=== PATIENT | male | born 1985 | race African-American/Black ===

== ENCOUNTER 2016-12-16 03:25 | Emergency (ER) | payer OTHER ==
[~2016-12-16] VITALS: Ht 185.4 cm; Wt 117.9 kg
[~2016-12-16 03:25] MED LIST: NKM; TYLENOL EXTRA500 MG ORAL
[2016-12-16 03:35] VITALS: BP 136/73
--- NOTE | 2016-12-16 03:54 | Emergency Room Report ---
History of Present Illness General Chief Complaint: Head Injury Source: Patient Present Illness HPI Patient hit head on counter. Bleeding was noted by girlfriend and controlled. He went to work. No LOC. Denies pain in head. No dizziness, fever, change vision. Also c/o L knee pain. Seen here post basketball injury with dx of "effusion". Still gives him problems. box office agent. Played football. No other somatic complaints. Tetanus UTD. Allergies: Coded Allergies: No Known Allergies (Unverified , 09/07/15) Patient History Past Medical History: see triage record Social History Narrative security systems sales representative Reviewed Nursing Documentation: PMH: Agreed, PSxH: Agreed Nursing Documentation-PMH Past Medical History: No Stated History Review of Systems All Other Systems: negative except mentioned in HPI Physical Exam Vital Signs Date Time Temp Pulse Resp B/P (MAP) Pulse Ox O2 Delivery O2 Flow Rate FiO2 12/16/16 03:33 97.9 88 17 136/73 100 Room Air General Appearance: well appearing, no apparent distress Head: normocephalic, other - lac occiput R Eyes: bilateral eye normal inspection, bilateral eye PERRL, bilateral eye EOMI ENT: hearing grossly normal, normal voice, moist mucus membranes Neck: full range of motion, supple, no bony tend Respiratory: no respiratory distress, speaking full sentences Cardiovascular #1: normal peripheral pulses, regular rate, rhythm Cardiovascular #2: 2+ radial (R) Musculoskeletal: no calf tenderness, other - ligament laxity of L knee without drawer. Applies negative. Neurologic: alert, oriented x3, motor strength/tone normal, sensory intact, cerebellar normal, normal gait, speech normal Psychiatric: mood/affect normal Skin: laceration Procedures Laceration/Wound Repair Laceration/Wound Repair : Consent: Verbal Wound Location: head Wound's Depth, Shape: into muscle, linear, irregular Wound Length (cm): 3 Wound Explored: clean Betadine Prep?: Yes Anesthesia: Lidocaine w/ Epi Wound Debrided: none Wound Repaired With: sutures Suture Size/Type: 4:0, proline Layer Closure?: No Sterile Dressing Applied?: No - bacitracin applied Patient Tolerated: Well Complications: None Medical Decision Making Diagnostic Impression: Primary Impression: Laceration Additional Impressions: Acute head injury Qualified Codes: S09.90XA - Unspecified injury of head, initial encounter Chronic knee instability Qualified Codes: M23.52 - Chronic instability of knee, left knee ER Course Patient with head laceration. No KO. Needs sutures (slight late presentation, but still indicated.) No pain. Knee with instability of ligaments (more than R, but lax there also). Needs further eval with probable MRI and suggested PT. At this time, rubi would not help. Sutured. Cailin well. Patient stable for outpatient observation and treatment. Last Vital Signs Date Time Temp Pulse Resp B/P (MAP) Pulse Ox O2 Delivery O2 Flow Rate FiO2 12/16/16 04:30 78 17 151/82 100 Room Air 12/16/16 03:35 97.9 Status: improved Disposition: HOME, SELF-CARE Condition: Improved Scripts Bacitracin (Bacitracin) 28.4 Gm Oint...g. 1 APPLIC TOPIC BID, #10 GM Prov: Yadiel Gregorio M.D. 12/16/16 Yadiel Gregorio M.D. Dec 16, 2016 03:54
[2016-12-16] MEDS ORDERED: Bacitracin Oint UD TOPIC ONE (04:00)
[2016-12-16] MEDS ORDERED: Lidocaine 1% 10mg/ml/Epi 0.005mg/ml 30ml vial INJ ONE (04:00)
[2016-12-16] MEDS ORDERED: BACITRACIN15 GM TOPIC (04:22)
[2016-12-16 04:30] VITALS: BP 151/82
== END 2016-12-16 04:30 | disposition home or self-care (01) ==
LOC: EMR 03:52
DX: S09.90XA Unspecified injury of head, initial encounter (principal); S01.91XA Laceration without foreign body of unspecified part of head, initial encounter; M23.52 Chronic instability of knee, left knee; W22.8XXA Striking against or struck by other objects, initial encounter; Y93.9 Activity, unspecified; Y92.9 Unspecified place or not applicable
CPT/HCPCS: 12013; 99284; Z7502

== ENCOUNTER 2016-12-24 03:07 | Emergency (ER) | payer OTHER ==
[~2016-12-24] VITALS: Ht 185.4 cm; Wt 122.5 kg
[~2016-12-24 03:07] MED LIST changes: +BACITRACIN15 GM TOPIC
[2016-12-24 03:47] VITALS: BP 143/83
--- NOTE | 2016-12-24 04:02 | Emergency Room Report ---
History of Present Illness General Chief Complaint: Wound Recheck/Suture Removal Source: Patient Present Illness HPI 31-year-old male no significant past medical history presenting with suture removal. Patient states he hit his head, sustaining laceration to back of right head, had 2 sutures placed 8 days ago in our emergency room. No complaints at this time Allergies: Coded Allergies: No Known Allergies (Unverified , 09/07/15) Patient History Past Medical History: see triage record Past Surgical History: none Pertinent Family History: none Reviewed Nursing Documentation: PMH: Agreed, PSxH: Agreed Nursing Documentation-PMH Past Medical History: No Stated History Review of Systems All Other Systems: negative except mentioned in HPI Physical Exam Vital Signs Date Time Temp Pulse Resp B/P (MAP) Pulse Ox O2 Delivery O2 Flow Rate FiO2 12/24/16 03:41 97.9 72 16 143/83 96 Room Air Sp02 EP Interpretation: reviewed, normal General Appearance: normal inspection, well appearing, no apparent distress, alert, GCS 15, non-toxic Head: normocephalic - 2 sutures and the right scalp, no purulent drainage Eyes: bilateral eye normal inspection, bilateral eye PERRL, bilateral eye EOMI ENT: normal ENT inspection, normal pharynx, normal voice, moist mucus membranes Neck: normal inspection, full range of motion, supple Respiratory: normal inspection, lungs clear, normal breath sounds, no respiratory distress, no retraction, no wheezing, speaking full sentences, chest symmetrical Cardiovascular #1: normal inspection, regular rate, rhythm, no edema, normal capillary refill Cardiovascular #2: 2+ radial (R), 2+ radial (L) Gastrointestinal: normal inspection, non tender, soft, non-distended, no guarding Genitourinary: no CVA tenderness Musculoskeletal: normal inspection, back normal, normal range of motion, non- tender Neurologic: normal inspection, alert, oriented x3, responsive, motor strength/ tone normal, sensory intact, normal gait, speech normal Psychiatric: normal inspection, judgement/insight normal, memory normal Skin: normal inspection, normal color, no rash, warm/dry, well hydrated, normal turgor Procedures Additional Procedure Procedure Narrative Suture removal performed 2 sutures removed from right scalp No complications Medical Decision Making Diagnostic Impression: Primary Impression: Encounter for removal of sutures ER Course 31-year-old male here for suture removal no other complaints ER course: 2 sutures removed Disposition: Patient is to be discharged to home. Please note that this Emergency Department Report was dictated using [employer] inspector technology software, occasionally this can lead to erroneous entry secondary to interpretation by the dictation equipment Last Vital Signs Date Time Temp Pulse Resp B/P (MAP) Pulse Ox O2 Delivery O2 Flow Rate FiO2 12/24/16 03:47 97.9 72 16 143/83 96 Room Air Disposition: HOME, SELF-CARE Condition: Improved [facility]errals: [facility] (PCP) Gris Sheffield M.D. Dec 24, 2016 04:02
[2016-12-24 04:11] VITALS: BP 143/83
== END 2016-12-24 04:11 | disposition home or self-care (01) ==
LOC: EMR 03:51
DX: Z48.02 Encounter for removal of sutures (principal)
CPT/HCPCS: 99281

== ENCOUNTER 2018-02-04 03:01 | Emergency (ER) | payer OTHER ==
[~2018-02-04] VITALS: Ht 185.4 cm; Wt 126.1 kg
[2018-02-04 03:30] VITALS: BP 125/79
[2018-02-04] MEDS ORDERED: IBUPROFEN600 MG ORAL (03:48)
--- NOTE | 2018-02-04 03:48 | Emergency Room Report ---
History of Present Illness General Chief Complaint: Pain Source: Patient Present Illness HPI 32-year-old male with no past medical history. He presents with chief complaint of bilateral feet pain. His been on and off for the last 2 weeks. Worse in the morning. He said the pain is to the sole of his foot near the heel. No trauma. No swelling. No fever chills. Denies any other complaint. Worse with walking. Pain is 7 out of 10. Throbbing in nature. 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 Allergies: Coded Allergies: No Known Allergies (Unverified , 09/07/15) Patient History Past Medical History: see triage record, old chart reviewed Past Surgical History: none Pertinent Family History: none Social History: Denies: smoking Immunizations: other Reviewed Nursing Documentation: PMH: Agreed; PSxH: Agreed Nursing Documentation-PMH Past Medical History: No Stated History Review of Systems Eye: Denies: eye pain, blurred vision ENT: Denies: ear pain, nose congestion, throat swelling Respiratory: Denies: cough, shortness of breath Cardiovascular: Denies: chest pain, palpitations Gastrointestinal: Denies: abdominal pain, diarrhea, nausea, vomiting Musculoskeletal: Reports: joint pain, muscle pain; Denies: back pain Skin: Denies: rash Neurological: Denies: headache, numbness Endocrine: Denies: increased thirst, increased urine Hematologic/Lymphatic: Denies: easy bruising All Other Systems: negative except mentioned in HPI Physical Exam Vital Signs Date Time Temp Pulse Resp B/P (MAP) Pulse Ox O2 Delivery O2 Flow Rate FiO2 02/04/18 03:10 98.4 87 16 125/79 95 Room Air vitals normal Sp02 EP Interpretation: reviewed, normal General Appearance: well appearing, no apparent distress, alert Head: normocephalic, atraumatic Eyes: bilateral eye PERRL, bilateral eye EOMI ENT: hearing grossly normal, normal pharynx Neck: full range of motion, supple, no meningismus Respiratory: chest non-tender, lungs clear, normal breath sounds Cardiovascular #1: regular rate, rhythm, no murmur Gastrointestinal: normal bowel sounds, non tender, no mass, no organomegaly, no bruit, non-distended Musculoskeletal: back normal, gait/station normal, normal range of motion, other - Bilateral feet: Patient is flat-footed. He has tenderness on the sole near the heel area. No inflammation. No abscess. No redness. No warmth. Neurologic: alert, oriented x3 Psychiatric: mood/affect normal Skin: warm/dry Medical Decision Making Diagnostic Impression: Primary Impression: Plantar fasciitis, bilateral ER Course Patient presents with bilateral feet pain. No evidence of diabetes or neuropathy. This is more likely a plantar fasciitis but no evidence of infection a septic joint. We'll discharge home. We'll give referral to see a staffing analyst. Last Vital Signs Date Time Temp Pulse Resp B/P (MAP) Pulse Ox O2 Delivery O2 Flow Rate FiO2 02/04/18 03:10 98.4 87 16 125/79 95 Room Air Status: improved Disposition: HOME, SELF-CARE Condition: Stable Scripts Ibuprofen* (MOTRIN*) 600 Mg Tablet 600 MG ORAL THREE TIMES A DAY, #30 TAB 0 Refills Prov: Tano Ball MD 02/04/18 Referrals: [facility] (PCP) Additional Instructions: Elevate leg. Follow-up with your DrVinod for referral to see a staffing analyst. Return if symptom worsen. Tano Ball MD Feb 04, 2018 03:48
[2018-02-04 04:00] VITALS: BP_SYST 119; BP_SYST 121; BP_DIAS 63; BP_DIAS 65
== END 2018-02-04 04:00 | disposition home or self-care (01) ==
LOC: EMR 03:30
DX: M72.2 Plantar fascial fibromatosis (principal); M21.42 Flat foot [pes planus] (acquired), left foot; M21.41 Flat foot [pes planus] (acquired), right foot
CPT/HCPCS: 99282

== ENCOUNTER 2018-02-23 03:22 | Emergency (ER) | payer OTHER ==
[~2018-02-23] VITALS: Ht 185.4 cm; Wt 122.5 kg
[~2018-02-23 03:22] MED LIST changes: +IBUPROFEN600 MG ORAL
[2018-02-23 03:28] VITALS: BP 122/66
[2018-02-23 03:46] VITALS: BP 122/66
--- NOTE | 2018-02-23 03:48 | Emergency Room Report ---
History of Present Illness General Chief Complaint: Wound Recheck/Suture Removal Source: Patient Present Illness HPI Patient 32-year-old male who presented for wound check. Patient had a suture repair of his left ear at [facility]. This occurred approximately 2 weeks ago. Patient denies any pain or swelling.The patient denies any discharge or increased pain. Allergies: Coded Allergies: No Known Allergies (Unverified , 09/07/15) Patient History Past Medical History: see triage record Reviewed Nursing Documentation: PMH: Agreed; PSxH: Agreed Nursing Documentation-PMH Past Medical History: No Stated History Review of Systems All Other Systems: negative except mentioned in HPI Physical Exam Vital Signs Date Time Temp Pulse Resp B/P (MAP) Pulse Ox O2 Delivery O2 Flow Rate FiO2 02/23/18 03:28 98.1 74 16 122/66 97 Room Air General Appearance: well appearing, no apparent distress Head: normocephalic, atraumatic ENT: hearing grossly normal, normal voice Neck: full range of motion, supple Respiratory: no respiratory distress, speaking full sentences Musculoskeletal: no calf tenderness Neurologic: normal inspection, alert, oriented x3, responsive, field crop farming supervisor III-XII nml as tested, normal gait Psychiatric: mood/affect normal Skin: no rash, other - healed laceration no infection Medical Decision Making Diagnostic Impression: Primary Impression: Encounter for removal of sutures ER Course Patient presented for wound check. Differential diagnosis included healed wound , cellulitis, wound dehiscence among others. The sutures were removed by me. The patient is advised to follow up with primary care doctor in for wound recheck as needed. Patient is advised to return if any worsening condition or if any changes in status that are concerning. Last Vital Signs Date Time Temp Pulse Resp B/P (MAP) Pulse Ox O2 Delivery O2 Flow Rate FiO2 02/23/18 03:28 98.1 74 16 122/66 97 Room Air Status: improved Disposition: HOME, SELF-CARE Condition: Stable Patient Instructions: Suture Removal, Care After Jonathan Valdes MD Feb 23, 2018 03:48
== END 2018-02-23 04:00 | disposition home or self-care (01) ==
LOC: EMR 03:50
DX: S01.312D Laceration without foreign body of left ear, subsequent encounter (principal); X58.XXXD Exposure to other specified factors, subsequent encounter; Z48.02 Encounter for removal of sutures
CPT/HCPCS: 99282

== ENCOUNTER 2019-03-21 03:43 | Emergency (ER) | payer OTHER ==
[~2019-03-21] VITALS: Ht 185.4 cm; Wt 127.0 kg
[2019-03-21 03:51] VITALS: BP 133/77
--- NOTE | 2019-03-21 04:14 | Emergency Room Report ---
History of Present Illness General Chief Complaint: Skin Rash/Abscess Source: Patient Present Illness HPI Is a 33-year-old male with no significant past medical history. He presents with a rash to his hands. This been ongoing for a couple weeks he said. No fever chills but no nausea no vomiting. No drainage but no pain. Denies any other complaint. Allergies: Coded Allergies: No Known Allergies (Unverified , 09/07/15) Patient History Past Medical History: see triage record, old chart reviewed Past Surgical History: none Pertinent Family History: none Social History: Denies: smoking Immunizations: other Reviewed Nursing Documentation: PMH: Agreed; PSxH: Agreed Nursing Documentation-PMH Past Medical History: No Stated History Review of Systems Eye: Denies: eye pain, blurred vision ENT: Denies: ear pain, nose congestion, throat swelling Respiratory: Denies: cough, shortness of breath Cardiovascular: Denies: chest pain, palpitations Gastrointestinal: Denies: abdominal pain, diarrhea, nausea, vomiting Musculoskeletal: Denies: back pain, joint pain Skin: Reports: rash Neurological: Denies: headache, numbness Endocrine: Denies: increased thirst, increased urine Hematologic/Lymphatic: Denies: easy bruising All Other Systems: negative except mentioned in HPI Physical Exam Vital Signs Date Time Temp Pulse Resp B/P (MAP) Pulse Ox O2 Delivery O2 Flow Rate FiO2 03/21/19 03:46 98.1 90 16 133/77 (95) 96 Room Air Vitals normal Sp02 EP Interpretation: reviewed, normal General Appearance: well appearing, no apparent distress, alert Head: normocephalic, atraumatic Eyes: bilateral eye PERRL, bilateral eye EOMI ENT: hearing grossly normal, normal pharynx Neck: full range of motion, supple, no meningismus Respiratory: chest non-tender, lungs clear, normal breath sounds Cardiovascular #1: regular rate, rhythm, no murmur Gastrointestinal: normal bowel sounds, non tender, no mass, no organomegaly, no bruit, non-distended Musculoskeletal: back normal, normal range of motion, gait/station normal, other - Bilateral hands: On the palm there are multiple scattered flat slightly raised circular hyperkeratotic rash. Is also in between his fingers. Psychiatric: mood/affect normal Medical Decision Making Diagnostic Impression: Primary Impression: Palmar wart ER Course This patient presents with multiple palmar warts. No evidence of abscess. Differential includes cellulitis, syphilis to name a few. Last Vital Signs Date Time Temp Pulse Resp B/P (MAP) Pulse Ox O2 Delivery O2 Flow Rate FiO2 03/21/19 03:51 98.1 90 16 133/77 96 Room Air Status: unchanged Disposition: HOME, SELF-CARE Condition: Stable Referrals: [facility] (PCP) Additional Instructions: Follow-up with your doctor in 7 days. You may need a referral to see a salad chef. Screening test for syphilis is done here. Will call you in a week or so if the test is positive. Return if symptoms worsen. Tano Ball MD Mar 21, 2019 04:14
[2019-03-21 04:25] VITALS: BP 133/77
== END 2019-03-21 04:25 | disposition home or self-care (01) ==
LOC: EMR 04:08
DX: B07.8 Other viral warts (principal)
CPT/HCPCS: 86592; Z7502; 99282

== ENCOUNTER 2019-03-24 01:41 | Emergency (ER) | payer OTHER ==
[~2019-03-24] VITALS: Ht 185.4 cm; Wt 127.0 kg
[2019-03-24 01:46] VITALS: BP 134/77
--- NOTE | 2019-03-24 02:09 | Emergency Room Report ---
History of Present Illness General Chief Complaint: General Complaint Source: Patient Present Illness HPI This a 33-year-old male with no past medical history. He presents with chief complaint of rash to his hands. I saw this patient few days ago. I diagnosed him with palmar warts. I also suspect that secondary syphilis so I sent an RPR. The test came back positive. Patient was called he came back for treatment. Patient denies any other complaint. No nausea no vomiting. No fever chills. No discharge. Allergies: Coded Allergies: No Known Allergies (Unverified , 03/24/19) Patient History Past Medical History: see triage record, old chart reviewed Past Surgical History: none Pertinent Family History: none Social History: Denies: smoking Immunizations: other Reviewed Nursing Documentation: PMH: Agreed; PSxH: Agreed Review of Systems Eye: Denies: eye pain, blurred vision ENT: Denies: ear pain, nose congestion, throat swelling Respiratory: Denies: cough, shortness of breath Cardiovascular: Denies: chest pain, palpitations Gastrointestinal: Denies: abdominal pain, diarrhea, nausea, vomiting Musculoskeletal: Denies: back pain, joint pain Skin: Reports: rash Neurological: Denies: headache, numbness Endocrine: Denies: increased thirst, increased urine Hematologic/Lymphatic: Denies: easy bruising All Other Systems: negative except mentioned in HPI Physical Exam Vital Signs Date Time Temp Pulse Resp B/P (MAP) Pulse Ox O2 Delivery O2 Flow Rate FiO2 03/24/19 01:44 98.2 84 16 134/77 (96) 99 Room Air Vitals normal Sp02 EP Interpretation: reviewed, normal General Appearance: well appearing, no apparent distress, alert Head: normocephalic, atraumatic Eyes: bilateral eye PERRL, bilateral eye EOMI ENT: hearing grossly normal, normal pharynx Neck: full range of motion, supple, no meningismus Respiratory: chest non-tender, lungs clear, normal breath sounds Cardiovascular #1: regular rate, rhythm, no murmur Gastrointestinal: normal bowel sounds, non tender, no mass, no organomegaly, no bruit, non-distended Musculoskeletal: back normal, normal range of motion, gait/station normal, other - Painful circular rash on the palms. 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 He has no other symptoms. No fever. No discharge. Bicillin given here. Will discharge home. Recommend outpatient testing for HIV, hepatitis and other STDs. Recommend partners treated also. Last Vital Signs Date Time Temp Pulse Resp B/P (MAP) Pulse Ox O2 Delivery O2 Flow Rate FiO2 03/24/19 01:44 98.2 84 16 134/77 (96) 99 Room Air Status: improved Disposition: HOME, SELF-CARE Condition: Stable Additional Instructions: Recommend outpatient testing for hepatitis, HIV, and other STDs. This can be done at health departments or clinics. This can be done anonymously. Have your partners treated also. Follow-up with your doctor in 1 to 2 weeks. You will need testing in 6 to 12 months to check for resolution. Return if symptoms worsen. Tano Ball MD Mar 24, 2019 02:09
[2019-03-24 02:14] VITALS: BP 134/77
[2019-03-24] MEDS ORDERED: Bicillin LA 2.4MMU/4ML SYR IM ONE (02:15)
== END 2019-03-24 02:14 | disposition home or self-care (01) ==
LOC: EMR 02:10
DX: A51.39 Other secondary syphilis of skin (principal)
CPT/HCPCS: 99282